=== PATIENT | female | born 1985 | race Caucasian/White ===

== ENCOUNTER 2016-09-29 14:25 | Emergency (ER) | payer SELFPAY ==
[~2016-09-29] VITALS: Ht 157.5 cm; Wt 86.0 kg
[2016-09-29 14:35] VITALS: Ht 157.5 cm; Wt 86.0 kg
--- NOTE | 2016-09-29 14:49 | EN ---
Date/Time of Note Date/Time of Note DATE: 09/29/16 TIME: 14:46 ER Progress Note Evaluated patient in E. Patient has 5 insect bites of the abdomen, one on the right upper thigh and one on the posterior right lower extremity. There is significant drainage from one of the lesions -probable abscess- on the abdomen and may need to be evaluated and drained in an procedure room. Patient is in no acute distress at this time and her vital signs are stable. ANTONY VERGARA PA-C Sep 29, 2016 14:49
[2016-09-29] MEDS ORDERED: CEPH-443 PO (15:38)
[2016-09-29] MEDS ORDERED: SULF1TAB31 PO (15:38)
[2016-09-29] MEDS ORDERED: IBUP-1542 PO (15:38)
[2016-09-29] MEDS ORDERED: IBUPROFEN 800 MG TAB PO ONE (16:00)
[2016-09-29] MEDS ORDERED: CEPHALEXIN 500 MG CAP PO ONE (16:00)
[2016-09-29] MEDS ORDERED: TRIMETHOPRIM/SULFAMETHOX (DS) TAB PO ONE (16:00)
--- NOTE | 2016-09-29 16:12 | ERD ---
ER Documentation Chief Complaint Date/Time DATE: 09/29/16 TIME: 16:08 Chief Complaint POSSIBLE BUG BITES X1 WK LOWER LEGS & ABDOMIN HPI 31-year-old female patient with no significant past medical history presents to the ED complaining of possible insect bites on her abdomen and bilateral lower legs. States that this occurred about 1 week ago and she tried to pick it with a sterile stick that pops pimples from C4. Reports that they are painful. States that she also applied warm compresses to the bites on her abdomen. Denies any fever, chills, abdominal pain, nausea, vomiting, loss of sensation, loss of range of motion. ROS All systems reviewed and are negative except as per history of present illness. Medications Home Meds Active Scripts Ibuprofen* (Motrin*) 600 Mg Tab, 600 MG PO Q6, #30 TAB Prov:ZO STONER PA-C 09/29/16 Cephalexin* (Keflex*) 500 Mg Capsule, 500 MG PO QID for 7 Days, CAP Prov:ZO STONER PA-C 09/29/16 Sulfamethoxazole/Trimethoprim* (Bactrim Ds* Tablet) 1 Each Tablet, 1 TAB PO BID for 7 Days, #14 TAB Prov:ZO STONER PA-C 09/29/16 Physical Exam Vitals Vital Signs Date Time Temp Pulse Resp B/P Pulse Ox O2 Delivery O2 Flow Rate FiO2 09/29/16 14:35 99.2 117 20 121/81 96 Physical Exam Const: [id number], well-nourished. In no acute distress. Head: Atraumatic, normocephalic Eyes: Normal Conjunctiva without injection. No purulent discharge. ENT: Normal external ear, nose. Moist oropharynx without tonsillar exudates. Non -erythematous pharynx. Uvula midline. No drooling. No trismus. Neck: No cervical midline tenderness. Full range of motion. No meningismus. No cervical lymphadenopathy. No JVD. Resp: Clear to auscultation bilaterally. No wheezing, rhonchi, rales, or crackles. No accessory muscle use. No retractions. Cardio: Regular rate and rhythm. No murmurs, rubs or gallops. Abd: Soft, nontender, non distended. Normal bowel sounds. No palpable masses. No rebound tenderness. No guarding. Negative McBurney's point. Negative psoas sign. Negative obturator sign. Skin: No petechiae, purpura. A total of 5 possible punctate like bites with slight surrounding erythema with no fluctuance or induration noted. Slight purulent discharge noted. Spontaneous drainage noted. No bleeding noted. Back: No midline tenderness. No CVA tenderness. Ext: No cyanosis, or edema. Neur: Awake and alert. Normal gait. Normal coordination. Psych: Normal Mood and Affect Results 24 hrs Current Medications Medications (Trade) Dose Ordered Sig/Cele Route PRN Reason Start Time Stop Time Status Last Admin Dose Admin Ibuprofen (Motrin) 800 mg ONCE ONCE PO 09/29/16 16:00 09/29/16 16:01 DC 09/29/16 16:19 Trimethoprim/ Sulfamethoxazole (Bactrim (Ds)) 1 tab ONCE ONCE PO 09/29/16 16:00 09/29/16 16:01 DC 09/29/16 16:19 Cephalexin (Keflex) 500 mg ONCE ONCE PO 09/29/16 16:00 09/29/16 16:01 DC 09/29/16 16:19 Procedures/MDM This is a 31-year-old female patient with no significant past medical history presents to the ED complaining of possible insect bites. Patient is afebrile and nontoxic-appearing. Patient has normal vital signs. Patient was given Bactrim, Keflex, ibuprofen here in the ED with improvement of her symptoms. Patient was giving a clean dressing after it was cleaned with normal saline. Patient was instructed to return to the ED in 2 days for a wound check. I instructed patient that if symptoms do not improve she could possibly have an incision and drainage at this time due to secondary abscess. Low suspicion for scabies, SJS/TEN, erythema multiforme, sepsis, cellulitis, necrotizing fascitis , gangrene, meningococcemia or other emergent conditions. Discharge medications: Ibuprofen, Keflex, Bactrim Follow up with primary care physician in 1-2 days. Instructed patient to return to the ED sooner for any worsening symptoms. Patient's questions were answered. Patient understood and agreed with discharge plan. Patient discharged stable. Departure Diagnosis: Primary Impression: Bug bite with infection Encounter type: initial encounter Qualified Code: W57.XXXA - Bug bite with infection, initial encounter Condition: Stable Patient Instructions: Insect Sting/Bite, Infected Referrals: COMMUNITY CLINICS YOU HAVE RECEIVED A MEDICAL SCREENING EXAM AND THE RESULTS INDICATE THAT YOU DO NOT HAVE A CONDITION THAT REQUIRES URGENT TREATMENT IN THE EMERGENCY DEPARTMENT. FURTHER EVALUATION AND TREATMENT OF YOUR CONDITION CAN WAIT UNTIL YOU ARE SEEN IN YOUR DOCTORS OFFICE WITHIN THE NEXT 1-2 DAYS. IT IS YOUR RESPONSIBILITY TO MAKE AN APPOINTMENT FOR FOLOW-UP CARE. IF YOU HAVE A PRIMARY DOCTOR --you should call your primary doctor and schedule an appointment IF YOU DO NOT HAVE A PRIMARY DOCTOR YOU CAN CALL OUR PHYSICIAN REFERRAL HOTLINE AT IF YOU CAN NOT AFFORD TO SEE A PHYSICIAN YOU CAN CHOSE FROM THE FOLLOWING [facility] [address] [facility] [address] [facility] [place] [address] [facility] [address] [facility] [address] [facility]. [facility] [address] [facility] YOU HAVE RECEIVED A MEDICAL SCREENING EXAM AND THE RESULTS INDICATE THAT YOU DO NOT HAVE A CONDITION THAT REQUIRES URGENT TREATMENT IN THE EMERGENCY DEPARTMENT. FURTHER EVALUATION AND TREATMENT OF YOUR CONDITION CAN WAIT UNTIL YOU ARE SEEN IN YOUR DOCTORS OFFICE WITHIN THE NEXT 1-2 DAYS. IT IS YOUR RESPONSIBILITY TO MAKE AN APPOINTMENT FOR FOLOW-UP CARE. IF YOU HAVE A PRIMARY DOCTOR --you should call your primary doctor and schedule and appointment IF YOU DO NOT HAVE A PRIMARY DOCTOR YOU CAN CALL OUR PHYSICIAN REFERRAL HOTLINE AT . IF YOU CAN NOT AFFORD TO SEE A PHYSICIAN YOU CAN CHOSE FROM THE FOLLOWING [facility] INSTITUTIONS: [facility] [address] [place] [address] [facility] [address] [place] [address] [facility] [address] [place] [address] [facility] URGENT CARE/SPECIALTIES Additional Instructions: Follow up in 2 days in your clinic for wound check. FOLLOW UP WITH YOUR PRIMARY CARE PHYSICIAN in 2-3 days.Return to this facility if you are not improving as expected. ZO STONER PA-C Sep 29, 2016 16:12 ZO STONER PA-C Sep 29, 2016 16:12
== END 2016-09-29 16:48 | disposition home or self-care (01) ==
LOC: FTE 14:25
DX: S30.861A Insect bite (nonvenomous) of abdominal wall, initial encounter (principal); W57.XXXA Bitten or stung by nonvenomous insect and other nonvenomous arthropods, initial encounter; Y92.9 Unspecified place or not applicable
CPT/HCPCS: 99284